=== PATIENT | female | born 1945 | race Caucasian/White ===

== ENCOUNTER 2017-01-22 09:46 | Emergency (ER) | payer OTHER ==
[~2017-01-22] VITALS: Ht 152.4 cm; Wt 59.0 kg
[2017-01-22] MEDS ORDERED: AMOXICILLIN500 M2 PO (10:26)
[2017-01-22] MEDS ORDERED: MEDROL DOSEPAK4 MG PO (10:26)
== END 2017-01-22 10:48 | disposition home or self-care (01) ==
LOC: ED 09:46
DX: T63.441A Toxic effect of venom of bees, accidental (unintentional), initial encounter (principal); J01.90 Acute sinusitis, unspecified; F17.200 Nicotine dependence, unspecified, uncomplicated; Y92.9 Unspecified place or not applicable